=== PATIENT | female | born 1985 | race Caucasian/White ===

== ENCOUNTER 2023-02-10 15:04 | Outpatient (REF) | payer MEDICAID, SELFPAY ==
[2023-02-10 15:59] LABS: MANUAL DIFF FLAG NO
[2023-02-10 16:10] LABS: Basophils Percent Auto 0.2 % (0-2); Eosinophils Absolute Auto 0.1 X10*3/uL (0.0-0.4); Eosinophils Percent Auto 0.8 % (0-4); Hemoglobin 13.8 g/dl (12.0-16.0); Imm Gran Abs Auto 0.02 X10*3/uL (0.00-0.03); Imm Gran Pct Auto 0.2 % (0.0-0.4); Lymphocytes Absolute Auto 2.9 X10*3/uL (1.2-4.9); Lymphocytes Percent Auto 33.2 % (20-40); Mean Corpuscular HGB Conc 32.9 g/dl (31.0-35.0); Mean Corpuscular Hemoglobin 27.8 pg (27.0-33.0); Mean Corpuscular Volume 84.7 fL (80.0-98.0); Mean Platelet Volume 11.1 fL (9.4-12.3); Monocytes Absolute Auto 0.5 X10*3/uL (0.1-1.2); Monocytes Percent Auto 5.3 % (2-11); Neutrophils Absolute Auto 5.3 x10*3/uL (2.0-8.3); Neutrophils Percent Auto 60.3 % (45-73); Platelet Count 251 X10*3/uL (160-400); Red Blood Count 4.96 X10*6/uL (4.20-5.50); Red Cell Distribution Width 12.8 % (11.0-16.0); White Blood Count 8.8 X10*3/uL (4.8-10.8)
[2023-02-10 16:20] LABS: Estimated Average Glucose 100 mg/dL; Hemoglobin A1c % 5.1 % (<6.0)
[2023-02-10 16:43] LABS: Alanine Aminotransferase 26 U/L (0-31); Albumin Level 4.1 g/dL (3.5-5.0); Alkaline Phosphatase 90 U/L (39-117); Anion Gap 14 (12-20); Aspartate Amino Transferase 23 U/L (5-31); Bilirubin Total 1.8 mg/dL (0.0-1.0); Blood Urea Nitrogen 12 mg/dL (9-16); Calcium 9.3 mg/dL (8.4-10.2); Carbon Dioxide 22 mmol/L (22-29); Chloride 105 mmol/L (96-108); Estimated Glomerular Filt Rate > 60; Glucose Random 76 mg/dL (60-115); Potassium 3.7 mmol/L (3.3-5.1); Sodium 137 mmol/L (135-145); Total Protein 7.5 g/dL (6.5-8.0)
[2023-02-10 16:52] LABS: TSH reflex Free T4 1.51 uIU/mL (0.32-4.0)
[2023-02-10 17:15] LABS: HCG Quantitative 25532 mIU/mL
[2023-02-10 18:09] LABS: Appearance Urine Turbid; Color Urine Yellow; Glucose Urine UA Negative (Negative); Leukocyte Esterase Urine Small (1+) (Negative); Nitrite Urine Negative (Negative); PH 5.5 (5.0-9.0); Specific Gravity - Urine 1.025 (1.005-1.025); UMIC TRIGGER UACC YES; Urine Blood Negative (Negative); Urine Ketones Trace mg/dL (Negative); Urine Protein Negative (Neg-Trace)
[2023-02-10 18:12] LABS: Bacteria Urine 2+ (None Seen); Hyaline Casts Urine 0-2 /LPF (0-2); UACC Culture Trigger YES; WBC Urine 21-50 /HPF (0-5)
[2023-02-11 15:34] LABS: BV Int Neg Control Negative (Negative); BV Int Pos Control Positive (Positive)
== END 2023-02-10 15:05 | disposition home or self-care (01) ==
LOC: HO.HHCL 15:04
PROVIDERS: Visit Provider Student in an Organized Health Care Education/Training Program
DX: Z34.91 Encounter for supervision of normal pregnancy, unspecified, first trimester (principal); Z3A.11 11 weeks gestation of pregnancy
CPT/HCPCS: 36415; 80053; 81001; 83036; 84443; 84702; 85025; 87086; 87088; 87186; 87480; 87510; 87660

== ENCOUNTER 2023-10-30 15:05 | Outpatient (REF) | payer MEDICAID, SELFPAY ==
[2023-10-30 16:10] LABS: MANUAL DIFF FLAG NO
[2023-10-30 16:18] LABS: Basophils Percent Auto 0.5 % (0-2); Eosinophils Absolute Auto 0.1 X10*3/uL (0.0-0.4); Eosinophils Percent Auto 1.4 % (0-4); Hemoglobin 12.6 g/dl (12.0-16.0); Imm Gran Abs Auto 0.02 X10*3/uL (0.00-0.03); Imm Gran Pct Auto 0.3 % (0.0-0.4); Lymphocytes Absolute Auto 2.4 X10*3/uL (1.2-4.9); Lymphocytes Percent Auto 40.2 % (20-40); Mean Corpuscular HGB Conc 32.3 g/dl (31.0-35.0); Mean Corpuscular Hemoglobin 27.4 pg (27.0-33.0); Mean Corpuscular Volume 84.8 fL (80.0-98.0); Mean Platelet Volume 11.7 fL (9.4-12.3); Monocytes Absolute Auto 0.2 X10*3/uL (0.1-1.2); Monocytes Percent Auto 3.9 % (2-11); Neutrophils Absolute Auto 3.2 x10*3/uL (2.0-8.3); Neutrophils Percent Auto 53.7 % (45-73); Platelet Count 308 X10*3/uL (160-400); Red Cell Distribution Width 12.9 % (11.0-16.0); White Blood Count 5.9 X10*3/uL (4.8-10.8)
[2023-10-30 16:43] LABS: Alanine Aminotransferase 43 U/L (0-31); Albumin Level 4.2 g/dL (3.5-5.0); Alkaline Phosphatase 149 U/L (39-117); Anion Gap 11 (12-20); Aspartate Amino Transferase 36 U/L (5-31); Bilirubin Total 0.9 mg/dL (0.0-1.0); Blood Urea Nitrogen 20 mg/dL (9-16); Calcium 9.2 mg/dL (8.4-10.2); Carbon Dioxide 25 mmol/L (22-29); Chloride 108 mmol/L (96-108); Estimated Glomerular Filt Rate > 60; Glucose Random 96 mg/dL (60-115); Iron 52 mcg/dL (30-160); Percent Iron Saturation 12 % (15-50); Potassium 4.2 mmol/L (3.3-5.1); Sodium 140 mmol/L (135-145); Total Iron Binding Capacity 421 mcg/dL (228-428); Total Protein 7.6 g/dL (6.5-8.0); Unsaturated Iron Binding 369 ug/dL
[2023-10-30 17:02] LABS: TSH reflex Free T4 0.61 uIU/mL (0.32-4.0); Vitamin D 25-OH Total 19.9 ng/mL (>30)
[2023-10-31 07:44] LABS: HIV AB/AG Nonreactive (Nonreactive); HIV Num 1 0.05 S/CO (0.00-0.99)
== END 2023-10-30 15:06 | disposition home or self-care (01) ==
LOC: HO.HHCL 15:05
PROVIDERS: Visit Provider Internal Medicine
DX: Z00.00 Encounter for general adult medical examination without abnormal findings (principal); R53.83 Other fatigue
CPT/HCPCS: 36415; 80053; 82306; 83540; 84443; 85025; 87389

== ENCOUNTER 2023-11-28 | Outpatient (REF) | payer MEDICAID, SELFPAY ==
--- NOTE | ~2023-11-28 | XR_ITS ---
EXAMINATION: XR WRIST, LEFT CLINICAL INFORMATION: Left wrist pain COMPARISON: None available. TECHNIQUE: PA, lateral, and oblique views of the left wrist. FINDINGS: No fracture, dislocation or destructive process. No joint effusion. XR/XR wrist LT min 3V IMPRESSION: Unremarkable study.
== END 2023-11-28 00:01 | disposition home or self-care (01) ==
LOC: HO.XRAY
PROVIDERS: PCP Internal Medicine; Visit Provider Nurse Practitioner Family
DX: M25.532 Pain in left wrist (principal)
CPT/HCPCS: 73110

== ENCOUNTER 2024-05-17 10:29 | Outpatient (REF) | payer MEDICAID, SELFPAY ==
[2024-05-17 11:54] LABS: Alanine Aminotransferase 16 U/L (0-31); Albumin Level 3.7 g/dL (3.5-5.0); Alkaline Phosphatase 83 U/L (39-117); Aspartate Amino Transferase 22 U/L (5-31); Bilirubin Direct 0.3 mg/dL (0.0-0.5); Bilirubin Total 0.9 mg/dL (0.0-1.0); Cholesterol 146 mg/dL (<200); HDL Cholesterol 53 mg/dL (>40); LDL Cholesterol Calculated 70 mg/dL (<100); Total Protein 7.1 g/dL (6.5-8.0); Triglycerides 118 mg/dL (<150)
== END 2024-05-17 10:30 | disposition home or self-care (01) ==
LOC: HO.HHCL 10:29
PROVIDERS: Visit Provider Internal Medicine
DX: R79.89 Other specified abnormal findings of blood chemistry (principal)
CPT/HCPCS: 36415; 80061; 80076

== ENCOUNTER 2024-07-01 09:48 | Outpatient (REF) | payer MEDICAID, SELFPAY ==
--- OUTSIDE RECORDS SUMMARY | 2024-07-01 10:59 | XMS_ITS | Encounter Summary ---
Author Organization [facility] Address [address] [place] [address] Care Team Providers Care Race Board Attendant Name Role Phone Lilliana Olivo MD Primary Care Provide r Encounter Details Date Type Department Care Team (Latest Contact Info) Description 01/06/2022 Abstract [facility] CONVERSIONS Dental, Provider, DDS Social History Tobacco Use Types Packs/Day Years Used Date Smoking Tobacco: Never Assessed Comments Unknown Sex and Gender Information Value Date Recorded Sex Assigned at Female 02/28/2022 10:26 AM EDT Legal Sex Female 10:26 AM EDT Gender Identity Female 02/28/2022 10:26 AM EDT Sexual Orientation Straight 02/28/2022 10 :26 AM EDT documented as of this encounter Plan of Treatment Upcoming Encounters Date Type Department Care Team (Late st Contact Info) Description 07/09/2024 1:30 PM EDT Office Visit [facility] ADULT DENTAL [address] [place] [address] Fletcher Rob DDS [address] [place] [address] 11/15/2024 3:00 PM EDT Office Visit [facility] ADULT D[facility]AL [address] [place] [address] [place] Huertaaris [address] [place] [address] documented as of this encounter Visit Diagnoses Not on filedocumented in this encounter Care Teams Race Board Attendant Relationship Specialty Start Date End Date Lilliana Olivo MD [address] [place] [address] PCP - General Family Medicine 06/16/20 documented as of this encounter
--- OUTSIDE RECORDS SUMMARY | 2024-07-01 10:59 | XMS_ITS | Encounter Summary ---
Author Organization [employer] Address [address] [place] [address] Care Team Providers Care Flatwork Finisher Hand Name Role Phone Lilliana Olivo MD Primary Care Provide r Reason for Visit * Reason Comments Diarrhea Headache Encounter Details Date Type Department Care Team ([facility] st Contact Info) Description 07/01/2024 9:20 AM EST Office Visit [facility] [place] [address] [place] [address] Generalized abdominal pain (Primary Dx); Bad headache Social History Tobacco Use Types Packs/Day Years Used Date Smoking Tobacco: Never Passive Smoke Exposure: Never Smokeless Tobacco: Never Alcohol Use Standard Drinks/Week Comments Never 0 (1 standard drink = 0.6 oz pur e alcohol) Depression Answer Date Recorded Patient Health Questionnaire-9 Score 0 05/17/2024 Patient Health Questionnaire-9 Score 0 05/17/2024 Last PHQ-9: Questionnaire Data Not on file 0 05/17/2024 Housing Stability Answer Date Recorded What is your housing situation today? I have alberto connell 02/13/[address] you li ve. Do you have problems with any of the following? None of the above 02/13/2023 Food Insecurity Answer Date Recorded Within the past 12 months, y ou worried that your food would run out before you got money to buy more: Never True 02/13/2023 Within the past 12 months,th e food you bought just didn't last and you didn't have enough money to get more: Never True Transportation Answer Date Recorded In the past 12 months, has l ack of transportation kept you from medical appts, meetings, work or from getting things needed for daily living? No 11/14/2023 Utilities Answer Date Recorded In the past 12 months, has t he electric, gas, oil or water [facility] threatened to shut off services in your home? No 06/22/2023 Depression Answer Date Recorded Patient Health Questionnaire-2 Score 0 05/17/2024 Internet Access Answer Date Recorded Internet Access Q1 Yes 01/01/2024 Internet Access Q2 Not on file 01/01/2024 Comments No Sex and Gender Information Value Date Recorded Sex Assigned at Female 02/28/2022 10:26 AM EDT Legal Sex Female 10:26 AM EDT Gender Identity Female 02/28/2022 10:26 AM EDT Sexual Orientation Straight 02/28/2022 10 :26 AM EDT documented as of this encounter Last Filed Vital Signs Vital Sign Reading Time Taken Comments Blood Pressure 130/78 07/01/2024 9:24 AM EST Pulse 70 07/01/2024 9:24 AM EST Temperature 36.8 ??C (98.2 ??F) 07/01/2024 9:24 AM ES T Respiratory Rate 16 07/01/2024 9:24 AM EST Oxygen Saturation 99% 07/01/2024 9:24 AM EST Inhaled Oxygen Concentration - - Weight 64.9 kg (143 lb) 07/01/2024 9:24 AM EST Height - - Body Mass Index 27.02 05/17/2024 10:07 AM EST documented in this encounter Miscellaneous Notes * Assessment & Plan Note - Veronique Gorman MD - 07/01/2024 9:47 AM EST Associated Problem(s): Generalized abdominal pain Patient looking well today, except with mild oral dehydration and she has been afebrile for 24 hours. I think her symptoms are mostly related to viral gastroenteritis but given significant abdominal examination, I will order labs and follow-up by nurse team tomorrow. Advised regarding aggressive hydration with p.o. fluids i.e. water, Gatorade, Pedialyte, chicken broth, herbal teas etc. She can advance to BRAT diet tomorrow if she does not have diarrhea. Advised to go immediately to ED if she develops fever or chills again, worsening abdominal pain, orsevere vomiting. Will follow-up tomorrow for health status check. She is to be out of work for 2 days. documented in this encounter Plan of Treatment Upcoming Encounters Date Type Department Care Team (Late st Contact Info) Description 07/09/2024 1:30 PM EDT Office Visit [facility] [address] [place], [place] [phone] Fletcher Rob DDS [address] [place], [place] [phone] 11/15/2024 3:00 PM EDT Office Visit [facility] [address] [place], [place] [phone] Joana Huerta [address] [place], [place] [phone] Scheduled Orders Name Type Priority Associated Diagnoses Orde r Schedule CBC auto differential Lab Routine Generalized abdominal pain Expected: 07/01/2024 (Approximate), Expires: 07/01/2025 Sed Rate by Modified [facility] Routine Generalized abdominal pain Expected: 07/01/2024 (Approximate), Expires: 07/01/2025 C-reactive Protein Lab Routine Generalized abdominal pain Expected: 07/01/2024 (Approximate), Expires: 07/01/2025 documented as of this encounter Procedures Procedure Name Priority Date/Time Associated Diagnosis Comments POCT INFLUENZA B (ID NOW RAPID MOLECULAR) Routine 07/01/2024 9:37 AM EST Bad headache POCT INFLUENZA A (ID NOW RAPID MOLECULAR) Routine 07/01/2024 9:37 AM EST Bad headache POCT RAPID COVID ANTIGEN Routine 07/01/2024 9:26 AM EST Bad headache documented in this encounter Results * Influenza B (ID NOW Rapid Molecular) (07/01/2024 9:37 AM EST) Influenza B Negative Negative, Indeterminate [facility] Swab 07/01/2024 9:37 AM EST us Veronique Gorman MD POINT OF CARE TEST ENTER /EDIT ORDERABLES Final Result [facility] [address] [place] [address] [phone] * Influenza A (ID NOW Rapid Molecular) (07/01/2024 9:37 AM EST) Influenza A Negative Negative, Indeterminate [facility] Swab 07/01/2024 9:37 AM EST Veronique Gorman MD POINT OF CARE TEST ENTER /EDIT ORDERABLES Final Result Performing Organization Address [facility] Co de Phone Number [facility] [address] [place] [address] [phone] * POCT Rapid COVID Ag (07/01/2024 9:26 AM EST) Rapid COVID Ag Negative Swab 07/01/2024 9:26 AM EST Veronique Gorman MD POINT OF CARE TEST ENTER /EDIT ORDERABLES Final Result documented in this encounter Visit Diagnoses Diagnosis Generalized abdominal pain- Primary Abdominal pain, generalized Bad headache Headache documented in this encounter Additional Health Concerns Assessment Noted Time PHQ-9 Depression Total Score: 0 05/17/19 25 10:08 AM EST documented as of this encounter Care Teams Flatwork Finisher Hand Relationship Specialty Start Date End Date Lilliana Olivo MD [address] [place] [phone] PCP - General Family Medicine 06/16/20 documented as of this encounter
--- OUTSIDE RECORDS SUMMARY | 2024-07-01 10:59 | XMS_ITS | Encounter Summary ---
Author Organization [employer] [facility] Address [address] [place] [address] Care Team Providers Care Stock Replenisher Name Role Phone Lilliana Olivo MD Primary Care Provide r Encounter Details Date Type Department Care Team (Latest Contact Info) Description 07/06/2018 Abstract [facility] CONVERSIONS Dental, Provider, DDS Social History [...] Description 07/09/2024 1:30 PM EDT Office Visit [facility] ADULT DENTAL [address] [place] [address] Fletcher Rob DDS [address] [place] [address] 11/15/2024 3:00 PM EDT Office Visit [facility] ADULT DENTAL [address] [place] [address] [place] Huertaaris [address] [place] [address] documented as of this encounter Visit Diagnoses Not on filedocumented in this encounter Care Teams Stock Replenisher Relationship Specialty Start Date End Date Lilliana Olivo MD [address] [place] [address] PCP - General Family Medicine 06/16/20 documented as of this encounter
--- OUTSIDE RECORDS SUMMARY | 2024-07-01 10:59 | XMS_ITS | Encounter Summary ---
Author Organization [employer] Address [address] [place] [address] Care Team Providers Care Library Services Assistant Name Role Phone Lilliana Olivo MD Primary Care Provide r Reason for Visit * Reason Onset Date Comments Lab Results 06/18/2024 Encounter Details Date Type Department Care Team ([facility] st Contact Info) Description 06/18/2024 Telephone [facility] [address] [place], [place] [phone] Juhi Haq [place] Lab Results Social History Tobacco Use Types Packs/Day Years [...] t he electric, gas, oil or water company threatened to shut off services in your [...] AM EDT documented as of this encounter Miscellaneous Notes * Telephone Encounter - Juhi Haq MA - 06/18/2024 10:06 AM EST TC- Patient in regards of message below .Unable to reach LVM . Please let patient know her LFTS and cholesterol panel is now normal documented in this encounter Plan of Treatment Upcoming Encounters Date Type Department Care Team (Late st Contact Info) Description 07/09/2024 1:30 PM EDT Office Visit [facility] ADULT DENTAL [address] [place] [address] Fletcher Rob DDS [address] [place] [address] 11/15/2024 3:00 PM EDT Office Visit [facility] ADULT DENTAL [address] [place] [address] Joana Huerta [address] [place] [address] documented as of this encounter Visit Diagnoses Not on filedocumented in this encounter Additional Health Concerns Assessment Noted Time PHQ-9 Depression Total Score: 0 05/17/19 25 10:08 AM EST documented as of this encounter Care Teams Library Services Assistant Relationship Specialty Start Date End Date Lilliana Olivo MD [address] [place] [address] PCP - General Family Medicine 06/16/20 documented as of this encounter
--- OUTSIDE RECORDS SUMMARY | 2024-07-01 10:59 | XMS_ITS | Encounter Summary ---
Author Organization [facility] Address [address] [place] [address] Care Team Providers Care Proof Tester Name Role Phone Lilliana Olivo MD Primary Care Provide r Encounter Details Date Type Department Care Team (Latest Contact Info) Description 07/29/2020 Abstract [facility] CONVERSIONS Dental, Provider, DDS Social History [...] Description 07/09/2024 1:30 PM EDT Office Visit [facility] ADULT DENT[facility] [address] [place] [address] Fletcher Rob DDS [address] [place] [address] 11/15/2024 3:00 PM EDT Office Visit [facility] ADULT [facility] [address] [place] [address] [place] Huertaaris [address] [place] [address] documented as of this encounter Visit Diagnoses Not on filedocumented in this encounter Care Teams Proof Tester Relationship Specialty Start Date End Date Lilliana Olivo MD [address] [place] [address] PCP - General Family Medicine 06/16/20 documented as of this encounter
--- OUTSIDE RECORDS SUMMARY | 2024-07-01 10:59 | XMS_ITS | Clinical Summary ---
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 Vit-Fe Fumarate-FA ( Vitamins) 28-0.8 MG tabletIndications :Family Planning Take 1 tablet by mouth Once per day. 90 tablet 3 10/30/19 24 025 Active cholecalciferol (Vitamin D-3) 25 MCG (1000 UT) tabletIndications :Vitamin D deficiency Take 1 tablet (25 mcg) by mouth Once per day. 60 tablet 1 11/29/19 24 Active bismuth subsalicylate (Pepto Bismol) 262 MG/15ML suspension Take 15 mL by mouth if needed in the morning, at noon, and at bedtime for indigestion, diarrhea or heartburn for up to 10 days. 360 mL 07/02/19 25 025 Active acetaminophen (Tylenol Extra Strength) 500 MG tablet Take 1 tablet (500 mg) by mouth every 6 (six) hours if needed for mild pain. 120 tablet 07/02/19 25 025 Active metroNIDAZOLE (Metrogel) 0.75 % vaginal gelIndications:Ba cterial Vaginosis Insert one applicator into vagina at bedtime for 7 nights 45 g 02/11/20 23 025 Discontin ued(Thera py completed ) Active Problems Problem Noted Date Diagnosed Date Generalized abdominal pain 07/01/2024 Assessment & Plan (07/01/2024 9:47 AM EST): Patient looking well today, except with mild [...] fever or chills again, worsening abdominal pain, or severe vomiting. Will follow-up tomorrow for health status check. She is to be out of work for 2 days. Screening mammogram, encounter for 05/17/2024 Vitamin D deficiency 11/29/2023 Dental calculus 11/07/2023 Missing teeth, acquired 11/07/2023 Gingival bleeding 11/07/2023 Dental caries 11/07/2023 Grief 10/31/2023 Assessment & Plan (10/31/2023 1:39 PM EDT): Counseling done I will f/u closely No medications for now Other fatigue 10/30/2023 Assessment & Plan (11/29/2023 10:09 AM EDT): Resolved She is on vitamins I will hold iron supplement prescription for now Assessment & Plan (10/31/2023 1:38 PM EDT): Labs ordered last hgb 8.1 likley post I will repeat her blood work Left wrist pain 10/30/2023 11 weeks gestation of 02/11/2023 Assessment & Plan (02/11/2023 9:05 AM EDT): -LMP: 11/29/2022 ----calculated 11 weeks of -Pt is not sure if would like to continue w and would like to discuss w partner. -I made referral to OBGYN in case she decides to go through w and gave prenatals to start, in case she decides to continue. -I also gave number of [facility] in [place] in case she decides not to continue w . -Will do labs today. -Discussed importance of avoiding alcohol and certain meds if she decides to continue w . Pt is a non-smoker and does not use drugs. Headache 02/11/2023 Assessment & Plan (02/11/2023 9:07 AM EDT): BOLDEN appears to be possibly tensional w no alarming features and normal neurologic exam. -Advise hydration. -Tylenol PRN and told to avoid other meds due to . -Alarm S/Sx discussed. Dysuria 02/11/2023 Assessment & Plan (02/11/2023 9:10 AM EDT): Pt reports urinary and vaginal Sx. Urine dipstick - ketones + , nit neg LE trace. -Pt is currently . Will treat empirically for possible UTI and vaginosis w Keflex QID and Metronidazole gel. -I collected today a sample for vaginal swab for vaginal BV -UA w reflex cx Encounter for preventative adult health care exa mination 09/08/2022 Assessment & Plan (10/31/2023 1:37 PM EDT): See HPI Assessment & Plan (09/08/2022 1:57 PM EDT): Please refer to HPI Slow transit constipation 09/08/2022 Assessment & Plan (09/08/2022 1:58 PM EDT): It was advise to drink more water and increase fiber on her diet Elevated LFTs 07/14/2022 Assessment & Plan (05/17/2024 10:43 AM EST): Today extensive discussion was done about life style modifications I advise healthy diet (low calorie) and cardiovascular exercise Labs will be recheck Steatosis of liver 07/14/2022 Encounters Date Type Department Care Team Description 07/01/2024 9:20 AM EST Office Visit [facility] WALK-IN [address] [id number] Generalized abdominal pain (Primary Dx); Bad headache 06/18/[address] [phone] Juhi Haq [place] Lab Results 05/17/2024 2:00 PM EST Office Visit [facility] ADULT DENTAL [address] [place] [phone] Joana Huerta Dental calculus (Primary Dx); Missing teeth, acquired 05/17/2024 9:45 AM EST Office Visit [address] [address] Lilliana Olivo MD Elevated LFTs (Primary Dx); Screening mammogram, encounter for; Dietary counseling; Exercise counseling; Overweight 05/17/2024 Travel 05/16/[address] [address] Juhi Haq [place] Chart Prep 05/08/2024 Patient Outreach [address] [address] Lilliana Olivo MD Pre-visit Planning (SDOH screening completed on 11/14/2023) 04/10/[address] [address] Karolyn Tierney, TARAH Care Management ([facility] Graduation ) from Last 3 Months Immunizations Name Administration Dates Next Due Hep B, adult 08/09/2016,01/11/2016,06/12/2014 Influenza injectable quadriv alent IIV4 with preservative 03/14/2017,02/16/2015 Influenza injectable quadriv alent preservative free 02/04/2021,01/24/2019 Influenza, IIV3, injectable 03/11/2014 Tdap 02/04/2021, 9,09/28/2018,2013 Social History Tobacco Use Types Packs/Day Years Used Date Smoking Tobacco: Never Passive Smoke Exposure: Never Smokeless Tobacco: Never Tobacco Cessation:Counseling Given: Not Answered Alcohol Use Standard Drinks/Week Comments Never 0 [...] Orientation Straight 02/28/2022 10 :26 AM EDT Last Filed Vital Signs Vital Sign Reading Time Taken Comments Blood Pressure 130/78 07/01/2024 9:24 AM EST Pulse 70 07/01/2024 9:24 AM EST Temperature 36.8 ??C (98.2 ??F) 07/01/2024 9:24 AM ES T Respiratory Rate 16 07/01/2024 9:24 AM EST Oxygen Saturation 99% 07/01/2024 9:24 AM EST Inhaled Oxygen Concentration - - Weight 64.9 kg (143 lb) 07/01/2024 9:24 AM EST Height 154.9 cm (5' 1 ) 05/17/2024 10:07 AM EST Body Mass Index 27.02 05/17/2024 10:07 AM EST Plan of Treatment Upcoming Encounters Date Type Department Care Team (Late st Contact Info) Description 07/09/2024 1:30 PM EDT Office Visit [facility] ADULT DENTAL [address] [place] [phone] Fletcher Rob DDS [address] [place] [address] 11/15/2024 3:00 PM EDT Office Visit [facility] ADULT DENTAL [address] [place] [address] Joana Huerta [address] [place] [address] Health Maintenance Due Date Last Done Comments Alcohol/Substance Use Screening 1996 Family Planning (PISQ) 1999 Hepatitis A Vaccines (1 of 2 - Risk 2-dose series) 2003 COVID-19 Vaccine ( season) 2023 03/31/2021 Influenza Vaccine (#1) 2023 , 01/24/2019, 03/14/2017, Additional history exists Mammogram 2024 Dental Oral Exam 05/10/2024 11/07/2023, 11/2021, 03/04/2021, Additional history exists Dental X-Ray: Bitewings 11/07/2024 11/07/19 24, 02/28/2022, 01/06/2022, Additional history exists SDOH Screening 11/13/2024 11/14/2023 Dental Prophylaxis 11/15/2024 05/17/2024, 0 11/07/2023, 01/06/2022, Additional history exists Dental X-Ray: Full Mouth 01/07/2025 022, 03/16/2018, 08/25/2014 Depression Screening 05/17/2025 05/17/2024, 11/14/19 24 Tobacco Screening 05/17/2025 05/17/2024 Cervical Cancer Screening 09/30/2025 HPV/Cotest 09/30/2025 09/30/2020, 03/14/2017 Pap Smear 09/30/2025 09/30/2020 DTaP/Tdap/Td Vaccines (5 - Td or Tdap) 02/04/2031 02/04/2021, 01/24/2019, 09/28/2018, Additional history exists Zoster Vaccines (1 of 2) 2034 RSV Patients and Patients Aged 60 years or older (1 - 1-dose 75+ series) 2059 Hepatitis B Vaccines Completed 08/09/2016, 01/11/2016, 06/12/2014 Hepatitis C Screening Completed 02/28/2022 HIV Screening Completed 10/30/2023 HIB Vaccines Aged Out No longer eligi ble based on patient's age to complete this topic HPV Vaccines Aged Out No longer eligi ble based on patient's age to complete this topic IPV Vaccines Aged Out No longer eligi ble based on patient's age to complete this topic Meningococcal Vaccine Aged Out No tima walt eligible based on patient's age to complete this topic Pneumococcal Vaccine: Pediatrics (0 to 5 Years) and At-Risk Patients (6 to 49) Years) Aged Out No longer eligible based on patient's age to complete this topic RSV under 20 months Aged Out No longe r eligible based on patient's age to complete this topic Rotavirus Vaccines Aged Out No longer eligible based on patient's age to complete this topic Procedures Procedure Name Priority Date/Time Associated Diagnosis Comments POCT INFLUENZA B (ID NOW RAPID MOLECULAR) Routine 07/01/2024 9:37 AM EST Bad headache POCT INFLUENZA A (ID NOW RAPID MOLECULAR) Routine 07/01/2024 9:37 AM EST Bad headache POCT RAPID COVID ANTIGEN Routine 07/01/2024 9:26 AM EST Bad headache CASE PRESENTATION, DETAILED AND EXTENSIVE TREATMENT PLANNING Routine 05/17/2024 2:00 PM EST ORAL HYGIENE INSTRUCTIONS Routine 05/17/2024 2:00 PM EST Dental calculus Missing teeth, acquired Full PROPHYLAXIS - ADULT Routine 05/17/2024 2:00 PM EST Dental calculus LIPID PANEL, STANDARD Routine 05/17/2024 10:31 AM EST Elevated LFTs HEPATIC FUNCTION PANEL Routine 05/17/2024 10:31 AM EST Elevated LFTs BITEWINGS - 4 RADIOGRAPHIC IMAGES Routine 11/07/2023 10:00 AM EDT Dental calculus Missing teeth, acquired Dental caries Gingival bleeding PERIODIC ORAL EVALUATION - ESTABLISHED PATIENT Routine 11/07/2023 10:00 AM EDT HIV 1/2 ANTIGEN/ANTIBODY, FOURTH GENERATION W/RFL Routine 10/30/2023 3:06 PM EDT Encounter for preventative adult health care examination [facility] HISTORICAL HEPATITIS C AB W/REFL TO HCV RNA, QN, PCR Routine 02/28/2022 10:46 AM EDT INTRAORAL - COMPLETE SERIES OF RADIOGRAPHIC IMAGES Routine 01/06/2022 12:00 AM EDT HM PAP/HPV Routine 09/30/2020 from Last 3 Months or Most Recently Relevant to Health Maintenance Results * Influenza B (ID NOW Rapid Molecular) (07/01/2024 9:37 AM EST) Influenza B Negative Negative, Indeterminate [facility] Swab 07/01/2024 9:37 AM EST us Veronique Gorman MD POINT OF CARE TEST ENTER /EDIT ORDERABLES Final Result Performing Organization Address [facility] Co de Phone Number [facility] [address] [place] [phone] * Influenza A (ID NOW Rapid Molecular) (07/01/2024 9:37 AM EST) Influenza A Negative Negative, Indeterminate [facility] Swab 07/01/2024 9:37 AM EST Veronique Gorman MD POINT OF CARE TEST ENTER /EDIT ORDERABLES Final Result Performing Organization Address [facility] Co de Phone Number [facility] [address] [place] [phone] * POCT Rapid COVID Ag (07/01/2024 9:26 AM EST) Rapid COVID Ag Negative Swab 07/01/2024 9:26 AM EST Veronique Gorman MD POINT OF CARE TEST ENTER /EDIT ORDERABLES Final Result * Hepatic Function Panel (05/17/2024 10:31 AM EST) Pathologist [facility] Bilirubin, Total 0.9 0.0 - 1.0 mg/dL [facility] Bilirubin, Direct 0.3 0.0 - 0.5 mg/dL [facility] Aspartate Amino Transferase 22 5 - 31 U/L [facility] Alanine Aminotransferase 16 0 - 31 U/L [facility] Total Protein 7.1 6.5 - 8.0 g/dL [facility] Albumin Level 3.7 3.5 - 5.0 g/dL [facility] Alkaline Phosphatase 83 39 - 117 U/L [facility] Blood Venous blood specimen / Unknown 05/17/2024 10:31 AM EST 05/17/2024 11:20 AM EST us Lilliana Alcocer MD LAB BLOOD ORDERABLES Final Result [facility] [address] [place] [phone] * Lipid Panel, Standard (05/17/2024 10:31 AM EST) Triglycerides 118 <150 mg/dL [facility] Comment:Desirable Triglyceri de: less than 150 mg/dLBorderline High Triglyceride 150-199 mg/dLHigh Triglyceride: 200-499 mg/dLVery High Triglyceride: greater than or equal to 5OO mg/dL Cholesterol 146 <200 mg/dL [facility] Comment:Desirable Cholestero l: less than 200 mg/dLBorderline High Cholesterol: 200-239 mg/dLHigh Cholesterol: greater than 239 mg/dL LDL Cholesterol Calculated 70 <100 mg/dL [facility] Comment:Desirable LDL: less than 100 mg/dLNear Optimal/Above Optimal LDL: 110- 129 mg/dLBorderline High LDL: 130-159 mg/dLHigh LDL: 160-189 mg/dLVery High LDL: greater than or equal to 190 mg/dL HDL Cholesterol 53 >40 mg/dL [facility] Comment:Desirable HDL: grea ter than 40 mg/dL Note: This HDL assay may give artificially low results in patients with liver disease. Blood Venous blood specimen / Unknown 05/17/2024 10:31 AM EST 05/17/2024 11:20 AM EST us Lilliaan Alcocer MD LAB BLOOD ORDERABLES Final Result Performing Organization Address [facility] Co de Phone Number [facility] [address] [place] [phone] * HIV-1/2 Antigen and Antibodies, Fourth Generation, with Reflexes (10/30/2023 3:06 PM EDT) HIV AB/AG Nonreactive Nonreactive [facility] Comment:HIV-1 p24 Ag and/or HIV-1/HIV-2 Ab not detected.A test result that is nonreactive does not exclude thepossibility of exposure to or infection with HIV-1 and/orHIV-2. Nonreactive results in this assay for individualswith prior exposure to HIV-1 and/or HIV-2 may be due toantigen and antibody levels that are below the limit ofdetection of this assay.The Footnote HIV Ag/Ab Combo assay result andsupplemental assay results should be interpreted inconjunction with the patient's clinical presentation,history and other laboratory results. If the results areinconsistent with clinical evidence, additional testing issuggested to confirm the result. Blood Venous blood specimen / Unknown 10/30/2023 3:06 PM EDT 10/30/2023 4:03 PM EDT us Lilliana Alcocer MD LAB BLOOD ORDERABLES Final Result Performing Organization Address City/[facility] Co de Phone Number [facility] [address] [place] [phone] [phone] * HEPATITIS C AB W/REFL TO HCV RNA, QN, PCR (02/28/2022 10:46 AM EDT) HEPATITIS C ANTIBODY NON-REACTI VE NON-REACT TRESSA [facility] INDEX 0.10 <1.00 [facility] Comment: ?? HCV antibody was non-reactive. There is no laboratory ?? evidence of HCV infection. ?? In most cases, no further action is required. However, if recent HCV exposure is suspected, a test for HCV RNA (test code 77454) is suggested. ?? For additional information please refer to http://education.SciAps/faq/MXR80c3 (This link is being provided for informational/ educational purposes only.) ?? 02/28/2022 10:4 6 AM EDT Lilliana Alcocer MD HISTORICAL/NON ORDERA BLE LABS Final Result [facility] * Hm Pap Smear (09/30/2020) Pap Negative for intraephithelial lesion or malignancy Negative for intraephithelial lesion or malignancy, Other HPV Undetected Undetected, Indeterminate, Quantitative, Not Detected Historical Provider HEALTH MAINTENANCE Final Result from Last 3 Months or Most Recently Relevant to Health Maintenance Insurance [employer]SN [employer] [facility] C3 DENTAL-[facility] MEDICAID STAND ADULT Care Teams Vineyard Tender Relationship Specialty Start Date End Date Lilliana Olivo MD [address] [place] [phone] PCP - General Family Medicine 06/16/20
[2024-07-01 11:40] LABS: MANUAL DIFF FLAG NO
[2024-07-01 11:48] LABS: Basophils Percent Auto 0.2 % (0-2); Eosinophils Absolute Auto 0.1 X10*3/uL (0.0-0.4); Eosinophils Percent Auto 0.6 % (0-4); Hematocrit 40.7 % (37.0-47.0); Hemoglobin 13.4 g/dl (12.0-16.0); Imm Gran Abs Auto 0.02 X10*3/uL (0.00-0.03); Imm Gran Pct Auto 0.2 % (0.0-0.4); Lymphocytes Absolute Auto 1.8 X10*3/uL (1.2-4.9); Mean Corpuscular HGB Conc 32.9 g/dl (31.0-35.0); Mean Corpuscular Hemoglobin 28.8 pg (27.0-33.0); Mean Corpuscular Volume 87.3 fL (80.0-98.0); Mean Platelet Volume 10.6 fL (9.4-12.3); Monocytes Absolute Auto 0.5 X10*3/uL (0.1-1.2); Neutrophils Absolute Auto 5.7 x10*3/uL (2.0-8.3); Platelet Count 250 X10*3/uL (160-400); Red Blood Count 4.66 X10*6/uL (4.20-5.50); Red Cell Distribution Width 11.9 % (11.0-16.0)
[2024-07-01 12:04] LABS: C Reactive Protein 6.56 mg/dL (< or = 0.50)
[2024-07-01 12:31] LABS: Erythrocyte Sedimentation Rate 13 MM/HR (0-20)
== END 2024-07-01 09:49 | disposition home or self-care (01) ==
LOC: HO.HHCL 09:48
PROVIDERS: Visit Provider Internal Medicine
DX: R10.84 Generalized abdominal pain (principal)
CPT/HCPCS: 36415; 85025; 85652; 86140

== ENCOUNTER 2025-04-26 08:13 | Outpatient (REF) | payer MEDICAID, SELFPAY ==
--- NOTE | ~2025-04-26 | MM_ITS ---
EXAMINATION: MM SCREENING DIGITAL BREAST TOMOSYNTHESIS, BILATERAL CLINICAL INFORMATION: Screening. Asymptomatic. COMPARISON: Mammography: Comparison is made with available priors TECHNIQUE: Digital breast mammography with tomosynthesis is performed in both the craniocaudal and mediolateral oblique views along with computer-aided detection (CAD). FINDINGS: The breasts are heterogeneously dense, which may obscure small masses. There are no significant masses, abnormal calcifications, or other abnormalities. MM/MM tomosynthesis screening BI IMPRESSION: No mammographic evidence of malignancy. ASSESSMENT: BI-RADS Category 1: Negative RECOMMENDATION: Routine annual mammography screening. 1 year F/U This examination should not preclude the clinical evaluation of a suspicious palpable abnormality. This patient's information was entered into a reminder system with a target due date for their next mammogram. Electronically signed by: Trina Montoya DO 04/28/2025 09:10 AM ELYSSA
--- OUTSIDE RECORDS SUMMARY | 2025-04-26 08:16 | XMS_ITS | Clinical Summary ---
Author Organization [facility] Address [address] [place] [address] Phone Care Team Providers Care Product Merchandiser Name Role Phone Pedro Lam NP, Batsheva Primary Care Provider Lavonne martin Allergies No known active allergies Medications ibuprofen (ADVIL,MOTRIN) 600 MG tabletIndicatio ns:pain,mild pain Take 1 tablet (600 mg total) by mouth every 6 (six) hours for 1 day, THEN 1 tablet (600 mg total) every 6 (six) hours as needed. Indications: pain, mild pain. 20 tablet 4 Active oxyCODONE 5 MG immediate release tablet Take 1 tablet (5 mg total) by mouth every 4 (four) hours as needed. Partial fill ok 20 tablet 4 Active Additional Information Patient not taking.Reported on 11/22/2023 28 mg iron- 800 mcg Tab Take 1 tablet by mouth every morning. 4 Active hydrocortisone 2.5 % creamIndication s:Pruritus Apply topically 2 (two) times a day. 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 Patient met with MFM and chooses to continue and deliver with us at [facility]. Monitoring not recommended but patient is so need a plan for management. Offered induction vs expectant management. Kasi prefers expectant management at this point. Discussed possibility that labor may not start spontaneously and recommendation for IOL date if no labor. Tentative plan made for 40 weeks. Assessment & Plan (09/19/2023 3:12 PM EDT): I explained that in women where the fetus has anencephaly, it is not uncommon to go past the due date without spontaneous labor. Given her history of previous section, would recommend delivery between 39 and 40 weeks with induction. She is amenable to this. Assessment & Plan (08/15/2023 3:30 PM EDT): She notes movement. She denies any vaginal bleeding, leakage of fluid, or regular contractions. Overall, she is doing well and has no acute complaints. We briefly reviewed delivery management options today. Ideally, she will go into labor on her own as she has had 2 successful 's. But I did explain that in women with an anencephalic fetus, the rate of spontaneous labor may be less. Therefore, if she goes significantly past her due date, we may need to consider induction. However, I did explain that we would review these options at our next high risk meeting. Request for sterilization 04/04/2023 Overview (08/30/2023): Patient sure re no more pregnancies. This is 4th. Sign MH papers at 24-28 weeks. Given anencephaly, will defer sterilization until interval procedure. Kasi is still sure re no more children, but she needs to address further with . Uterine size-date discrepancy in first trimester 03/07/2023 Overview (03/07/2023): US in T1 5 weeks smaller than dates. Use US PEDRO of 10/10/2023 Supervision of high risk in third trim dayron 02/27/2023 Overview (08/30/2023): HR due to ANENCEPHALY, which she is carrying to term. screening: low risk CFFDNA Baby ASA: not indicated Rh: O pos GC/Chlam: neg/neg PAP 09/30/202022 COVID-19 vaccinated Hgb * GTT * Repeat RPR * Tdap * EPDS * PPBC * GBS * Feeding Plan * CF negative 2019 Varicella Imm Hgb electrophoresis normal. Assessment & Plan (10/05/2023 1:31 PM EDT): She is feeling movement. She denies any vaginal bleeding, LOF or regular contractions. Overall, she is doing OK. Assessment & Plan (09/19/2023 3:11 PM EDT): She notes movement. She denies any vaginal bleeding, leakage of fluid, or regular contractions. Overall, she is doing okay. History of delivery, currently 02/27/2023 Overview (02/27/2023): Date of surgery: 09/18/06 Reason for prior : intolerance Incision type: Midline vertical skin incision. Unknown uterine incision. Successful x2 Records requested/reviewed: Contraindications to TOLAC include > 2 prior births, prior uterine rupture or dehiscence, prior transfundal incision (classical, T, or J incisions; myomectomy with incision into uterine cavity or by surgeon's discretion), interpregnancy interval < 6 months Anterior placenta ? If anterior, schedule level 2 US Delivery route counseling: Preferred mode of delivery: Consent signed: If calculator score <60%, schedule MD consult at 35-37 weeks Calculator: [email or web address]--[email or web address] culat or History of 02/27/2023 Overview (02/27/2023): x2: 11/25/18, 04/07/21 Multigravida of advanced maternal age in first t rimester 02/27/2023 Overview (03/08/2023): AMA age >35 o Recommend daily baby aspirin if other risk factors are present (nulliparity, BMI >= 30, family h/o pre-eclampsia in mother or sister, previous with SGA infant, previous stillbirth, interval of >= 10 years between pregnancies, IVF ): No other risk factors present o Risks of aneuploidy discussed w patient. o Offered - Offer cell free DNA - Level 2 - Offer [facility] and amnio o Pt. Chooses Counsyl and level II Language barrier 04/12/2018 Overview (02/27/2023): Filipino speaking Requires Filipino speaking provider or interpretor Patient prefers apts in [place] with Dr. Jones Resolved Problems Problem Noted Date Diagnosed Date Resolved Date Multigravida of advanced mat ernal age in first trimester 02/27/2023 05/19/2023 Normal intrauterine , antepartum 04/07/2021 04/07/2021 care following vaginal delivery 04/07/2021 05/25/2021 Supervision of normal 09/30/2020 09/30/2020 History of delivery 09/30/2020 05/25/2021 Overview (09/30/2020): Successful TOLAC with P2. Plans TOLAC this as well. Assessment & Plan (04/07/2021 2:17 AM EST): Primary delivery 14 years ago for cord around the baby's neck Desires JOELLE Multigravida of advanced mat ernal age in third trimester 09/30/2020 05/25/2021 Overview (04/01/2021): OB-CMI score: 2 [09/30/2020] Group PN care? N Rh O POS GC/Chlam: neg/neg PAP: 09/30/2020 Tdap: given 02/04/2021 Flu: given 02/04/2021 Hgb: 11.7 GTT Normal (96) GBS neg PPBC counseled 03/29, undecided (has used Depo and Nexplanon in the past) screening: NT (1:2400); level II: Normal Assessment & Plan (03/29/2021 5:05 PM EST): GBS done today. Signs of labor/reasons to call reviewed. Discussed PPBC. First Covid vaccine schedule for Monday. Assessment & Plan (02/15/2021 12:10 PM EDT): Lab results printed for WIC form. Feeling well, +FM, no ctx/MINA/VB. No new concerns today. , delivered, current hospitalization 11/25/2018 01/04/2019 Term 11/25/2018 01/04/2019 Uses Filipino as primary spoken language 05/11/2018 05/11/2018 Encounter for supervision of normal in third trimester 04/12/2018 01/04/2019 Overview (11/14/2018): Review PEDRO change at [facility] (changed to 12/02/18 by U/S) MD: wants to see TK Childbirth Ed? Group PN care? NO Rh: POS NT Screen: low risk GC/chl neg/neg 04/12/18 Tdap done Hgb 10.6 GTT 109 GBS neg PPBC * Chart reviewed GL Assessment & Plan (11/19/2018 9:18 AM EDT): Patient presents today with her 12-year-old daughter who speaks fluent Swedish. Patient states she understands me and prefers to have her daughter interpret. Patient has no concerns. Baby is moving well. Previous delivery a ffecting 04/12/2018 01/04/2019 Overview (06/08/2018): Unsure incision type, was done in [facility] Will attempt to request records: per patient: family not able to get records as they have been destroyed due to elapsed time The patient has a vertical skin incision. Uterine incision unknown. First C/S was for breech. In this situation, TOLAC is possible. The patient was counseled regarding risk of uterine rupture (approximately 1/200) and consequences thereof. She requests TOLAC Assessment & Plan (11/19/2018 9:19 AM EDT): Patient desire for JOELLE AC reviewed with patient. Risks and benefits reviewed. Immunizations Immunization Administration Dates Next Due COVID-19 (Pre-02/20) Moderna Vaccine, mRNA, PF 03/31/2021 Hepatitis B Adult 08/09/2016,01/11/2016,06/12/19 15 INFLUENZA, SPLIT VIRUS, TRIV ALENT W/ PRESERVATIVE IM 03/11/2014 Influenza Quadrivalent Prese rvative Free IM 02/04/2021,01/24/2019 Influenza Quadrivalent w/ Preservative IM 03/14/2017,02/16/2015 Tdap 02/04/2021, 9,09/28/2018,2013 Family History Medical History Relation Comments CV disease Mother Relation Status Comments Father Alive Mother Social History Tobacco Use Types Packs/Day Years Used Date Smoking Tobacco: Never Passive Smoke Exposure: Never Smokeless Tobacco: Never Tobacco Cessation:Counseling Given: Not Answered Alcohol Use Standard Drinks/Week Comments No 0 (1 standard drink = 0.6 oz pur e alcohol) Education Answer Date Recorded Are you interested in more education? Not on leticia e 03/22/2023 Are you concerned about learning? Not on file 03/22/2023 No 03/22/2023 No 03/22/2023 Digital Access Answer Date Recorded No 03/22/2023 No 03/22/2023 Reliable internet access at home? Not on file 03/22/2023 Device with a working camera? Not on file Intimate Partner Violence Answer Date R ecorded Are you denied basic needs s uch as food, clothing, or medical care? No 10/12/2023 In the past 12 months have y ou been in a relationship with a person who hurts, threatens, or tries to control you? No 10/12/2023 Are you denied basic needs s uch as food, clothing, or medical care? No 10/12/2023 In the past 12 months have y ou been in a relationship with a person who hurts, threatens, or tries to control you? 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 Not on file Not on file Not on file Last Filed Vital Signs Vital Sign Reading Time Taken Comments Blood Pressure 110/70 11/22/2023 10:39 AM EDT Pulse 80 10/12/2023 8:37 AM EDT Temperature 36.7 C (98.1 F) 10/12/2023 8:37 AM EDT Respiratory Rate 18 10/12/2023 8:37 AM EDT Oxygen Saturation 97% 10/12/2023 8:37 AM EDT Inhaled Oxygen Concentration - - Weight 59.6 kg (131 lb 6.4 oz) 11/22/2023 10:39 AM EDT Height 152.4 cm (5') 11/22/2023 10:39 AM EDT Body Mass Index 25.66 11/22/2023 10:39 AM EDT Plan of Treatment Health Maintenance Due Date Last Done Comments DEPRESSION SCREENING 1996 PAP SMEAR 10/01/2023 09/30/2020 MAMMOGRAM 2024 INFLUENZA VACCINE (#1) 2024 , 01/24/2019, 03/14/2017, Additional history exists COVID-19 VACCINE ( - 2024- season) 2024 03/31/2021 SCREENING FOR DIABETES 02/25/2026 02/25/2023 Adult Td,Tdap Booster 02/04/2031 02/04/2021 , 01/24/2019, 09/28/2018, Additional history exists HEPATITIS C SCREENING Completed 2023 , 2023, 09/30/2020, Additional history exists HIV ONE-TIME SCREENING (18-65 YEARS) Completed 2023 SMOKING STATUS SCREENING (Once After 26 Yrs) Completed 11/22/2023 HEPATITIS A VACCINES Aged Out No long er eligible based on patient's age to complete this topic HIB VACCINES Aged Out No longer eligi ble based on patient's age to complete this topic MENINGOCOCCAL VACCINES (ACWY) Aged Out No longer eligible based on patient's age to complete this topic MENINGOCOCCAL VACCINES (B) Aged Out N o longer eligible based on patient's age to complete this topic PNEUMOCOCCAL VACCINES (0-49 years) Aged Out No longer eligible based on patient's age to complete this topic Medical Devices Not on file Procedures Procedure Name Priority Date/Time Associated Diagnosis Comments HEPATITIS C ANTIBODY, QUALITATIVE Routine 2023 2:23 PM EST Encounter for supervision of normal in first trimester PAP TEST Routine 09/30/2020 12:00 AM EDT from Last 3 Months or Most Recently Relevant to Health Maintenance Results * Hepatitis C antibody, qualitative (2023 2:23 PM EST) HCV NON-REACTIV E NON-REACTI VE [facility] Blood 2023 2:23 PM EST 2023 2:41 PM EST us Trey Jones MD LAB BLOOD BKR ORDERABLES Final R esult [address] [address] * Pap Smear (09/30/2020 12:00 AM EDT) 09/30/2020 10/01/2020 9:4 1 AM EDT Narrative SEE NARRATIVE - 10/08/2020 11:03 AM EDT [address] [address] Photographic Enlarger Operator: Kelley Conner MD [employer] Cytology Report FINAL DIAGNOSIS A. PAP SMEAR (SUREPATH) CE: SPECIMEN ADEQUACY: Satisfactory for evaluation; transformation zone present. INTERPRETATION: NEGATIVE FOR INTRAEPITHELIAL LESION OR MALIGNANCY. Electronically Signed Out By: ELIO Hamilton(ASCP) The Pap test is a screening test primarily for squamous cancers and precursors and has associated false-negative and false-positive results. New technologies such as liquid-based preparations may decrease but will not eliminate all false-negative results. Regular sampling and follow-up of unexplained clinical signs and symptoms are recommended to minimize false negative results. PROCEDURES/ADDENDA HPV Testing (Requested) Ordered Date: 10/01/2020 A. PAP SMEAR (SUREPATH) CE: Human Papilloma Virus Test Negative for high-risk human papillomavirus types 16, 18, 45 and the Other high risk probe set (Includes 31, 33, 35, 39, 51, 52, 56, 58, 59, 66, 68) by [employer] Onclarity HR-HPV analysis. Clinical correlation is advised. This HPV test was performed at [facility], [address] [place] [address]. This test has been FDA approved for SurePath cervical cytology specimens. The accuracy and precision of this test for all other specimen sources has been verified in the Cytopathology Laboratory of the [facility] and has not been cleared or approved by the U.S. Food and Drug Administration. Clinical correlation is advised. CLINICAL HISTORY Date of Last Menstrual Period: 07-12-2020 Menstrual History: Other Clinical Conditions: Screening Pap SPECIMEN SOURCE A: PAP SMEAR (SUREPATH) CE Patient Name: KASI DORSEY : 1985 (Age: 35) Sex: F Institution: [facility] Location: [facility] Date of Collection: 09/30/2020 Date of Reported: 10/08/2020 11:03 Results to: Trey Jones MD Trey Jones MD CYTOLOGY ORDERABLES Final Result SEE NARRATIVE from Last 3 Months or Most Recently Relevant to Health Maintenance [place] [address] C3 ACO [facility] C3 ACO [facility] C3 ACO Advance Directives For more information, please contact: [phone] (9AM - 5PM [facility]ie/[facility], Monday-Monday) * Full Code (Latest Code Status on File) Date Activated Date Inactivated Comments 10/09/2023 8:28 AM Question Answer Comments Code Status Confirmed With: Patient * Full Code (Presumed) Date Activated Date Inactivated Comments 11/25/2018 12:10 PM 11/27/2018 4:34 PM * Full Code (Presumed) Date Activated Date Inactivated Comments 11/25/2018 2:54 AM 11/25/2018 12:10 PM Care Teams Product Merchandiser Relationship Specialty Start Date End Date Batsheva Vasquez NP PCP - General 05/17/19 Additional Source Comments The information contained in this document represents components of the legal health record. It is not the complete legal health record.[facility]
--- OUTSIDE RECORDS SUMMARY | 2025-04-26 08:16 | XMS_ITS | Encounter Summary ---
Author Organization [facility] Address [address] [facility] [address] [place] [address] Phone Care Team Providers Care Retail Support Manager Name Role Phone Pedro Lam NP, Batsheva Primary Care Provider Lavonne martin Encounter Details Date Type Department Care Team (Latest Contact Info) Description 01/24/2024 Transcribe Orders Virtual Department [address] [place] [address] Lilliana Ch MD [address] [place] [address] Elevated LFTs (Primary Dx) Social History Tobacco Use Types Packs/Day Years Used Date Smoking Tobacco: Never Passive Smoke Exposure: Never Smokeless Tobacco: Never Alcohol Use Standard Drinks/Week Comments No 0 [...] file Not on file Not on file documented as of this encounter Plan of Treatment Not on file documented as of this encounter Results * US ABDOMEN COMPLETE (ADULT) (01/31/2024 7:42 AM EDT) Anatomical Region Laterality Modality Abdomen Ultrasound 01/31/2024 8:04 AM EDT Impressions 01/31/2024 8:09 AM EDT Unremarkable abdominal ultrasound. Narrative 01/31/2024 8:09 AM EDT US ABDOMEN COMPLETE (ADULT) Referring clinician's provided indication for this examination in Epic: Outside Radiology Order; elevated lft's TECHNIQUE: Abdominal Ultrasound Complete. COMPARISON: US ABDOMEN COMPLETE (ADULT) FINDINGS: Liver: No suspicious focal lesions. Hepatic echogenicity is within normal limits. Main portal vein: Patent portal vein with normally directed flow. Gallbladder: No gallstones or gallbladder wall thickening. Corporate Concierge reports a negative sonographic Dale sign. Biliary: No intrahepatic or extrahepatic biliary ductal dilation. The common bile duct measures 5 mm. Pancreas: Incompletely seen. Spleen: No splenomegaly. . Right Kidney: Size: 11.0 cm. No cortical thinning. No shadowing stones or hydronephrosis. Left Kidney: Size: 10.9 cm. No cortical thinning. No shadowing stones or hydronephrosis. Aorta: Normal, where visualized sonographically. Inferior vena cava: Patent intrahepatic segment. No upper abdominal free fluid. Procedure Note Kelley Ibarra MD - 01/31/2024 US ABDOMEN COMPLETE (ADULT) Referring clinician's provided indication for this examination in Epic:Outside Radiology Order; elevated lft's TECHNIQUE: Abdominal Ultrasound Complete. COMPARISON: US ABDOMEN COMPLETE (ADULT) FINDINGS: Liver: No suspicious focal lesions. Hepatic echogenicity is within normallimits. Main portal vein: Patent portal vein with normally directed flow. Gallbladder: No gallstones or gallbladder wall thickening. Corporate Concierge reports a negative sonographic Dale sign. Biliary: No intrahepatic or extrahepatic biliary ductal dilation. The common bile duct measures 5 mm. Pancreas: Incompletely seen. Spleen: No splenomegaly. . Right Kidney: Size: 11.0 cm. No cortical thinning. No shadowing stones orhydronephrosis. Left Kidney: Size: 10.9 cm. No cortical thinning. No shadowing stones orhydronephrosis. Aorta: Normal, where visualized sonographically. Inferior vena cava: Patent intrahepatic segment. No upper abdominal free fluid. IMPRESSION: Unremarkable abdominal ultrasound. us Lilliana Ch MD IMG US ABDOME N Final Result documented in this encounter Visit Diagnoses Diagnosis Elevated LFTs- Primary Other abnormal blood chemistry Elevated LFTs Other abnormal blood chemistry documented in this encounter Care Teams Retail Support Manager Relationship Specialty Start Date End Date Batsheva Vasquez NP PCP - General 05/17/19 documented as of this encounter Additional Source Comments The information contained in this document represents components of the legal health record. It is not the complete legal health record.[facility]
--- OUTSIDE RECORDS SUMMARY | 2025-04-26 08:16 | XMS_ITS | Encounter Summary ---
Author Organization [facility] Address [address] [facility] [address] [place] [address] Care Team Providers Care Car Repairer Apprentice Name Role Phone Lilliana Olivo MD Primary Care Provide r Encounter Details Date Type Department Care Team (Latest Contact Info) Description 01/06/[address] [facility] CONVERSIONS Dental, Provider, DDS Social History Tobacco [...] Care Team (Late st Contact Info) Description 05/30/2025 8:00 AM EST Office Visit [facility] ADULT DENTAL [address] [place] [address] Deanna, Joana [address] [place] [address] 05/30/2025 11:15 AM EST Office Visit [facility] MEDICINE [address] [place] [address] Negin Moreno MD [address] [place] [address] documented as of this encounter Visit Diagnoses Not on filedocumented in this encounter Care Teams Car Repairer Apprentice Relationship Specialty Start Date End Date Lilliana Olivo MD [address] [place] [address] PCP - General Family Medicine 06/16/20 documented as of this encounter
--- OUTSIDE RECORDS SUMMARY | 2025-04-26 08:16 | XMS_ITS | Encounter Summary ---
Author Organization [facility] Address [address] [facility] [address] [place] [address] Care Team Providers Care Talent Sourcing Specialist Name Role Phone Lilliana Olivo MD Primary Care Provide r Encounter Details Date Type Department Care Team (Latest Contact Info) Description 07/29/2020 Abstract [facility] CONVERSIONS Dental, Provider, DDS Social History [...] Description 05/30/2025 8:00 AM EST Office Visit [facility] ADULT DENTAL [address] [place] [address] Deanna, Joana [address] [place] [address] 05/30/2025 11:15 AM EST Office Visit [facility] MEDICINE [address] [place] [address] Negin Moreno MD [address] [place] [address] documented as of this encounter Visit Diagnoses Not on filedocumented in this encounter Care Teams Talent Sourcing Specialist Relationship Specialty Start Date End Date Lilliana Olivo MD [address] [place] [address] PCP - General Family Medicine 06/16/20 documented as of this encounter
--- OUTSIDE RECORDS SUMMARY | 2025-04-26 08:16 | XMS_ITS | Encounter Summary ---
Author Organization [facility] Address [address] [place] [phone] Phone Care Team Providers Care Medical Equipment Repair Technician Name Role Phone Pedro Lam NP, Bathseva Primary Care Provider Lavonne martin Encounter Details Date Type Department Care Team (Late st Contact Info) Description 10/09/2023 Procedure [facility] L[facility]D Procedures [address] [place] [address] Social History Tobacco Use Types Packs/Day Years [...] on file documented as of this encounter Visit Diagnoses Not on filedocumented in this encounter Care Teams Medical Equipment Repair Technician Relationship Specialty Start Date End Date Batsheva Vasquez NP PCP - General 05/17/19 documented as of this encounter Additional Source Comments The information contained in this document represents components of the legal health record. It is not the complete legal health record.[facility]
--- OUTSIDE RECORDS SUMMARY | 2025-04-26 08:16 | XMS_ITS | Encounter Summary ---
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 Name Role Phone Pedro Lam NP, Batsheva Primary Care Provider Lavonne martin Encounter Details Date Type Department Care Team (Latest Contact Info) Description 04/28/2022 Transcribe Orders Virtual Department [address] [place] [address] Lilliana Ch MD [address] [place] [address] Fatty (change of) liver, not elsewhere classified (Primary Dx) Social History Tobacco Use Types Packs/Day Years Used Date Smoking Tobacco: Never Smokeless Tobacco: Never Alcohol Use Standard Drinks/Week Comments No 0 (1 standard drink = 0.6 oz pur e alcohol) Comments No Sex and Gender Information Value [...] encounter Results * US ABDOMEN COMPLETE (ADULT) (05/19/2022 7:51 AM EST) Anatomical Region Laterality Modality Abdomen Ultrasound 05/19/2022 8:36 AM EST Impressions 05/19/2022 8:41 AM EST Diffuse fatty liver. Otherwise, unremarkable abdominal ultrasound Narrative 05/19/2022 8:41 AM EST US ABDOMEN COMPLETE (ADULT) TECHNIQUE: Abdominal Ultrasound Complete. COMPARISON: FINDINGS: Liver: Diffuse fatty liver. No focal lesions. Main Portal Vein: Patent with normal direction of flow. Gallbladder: Normal. No gallstones or gallbladder wall thickening. Dale's Sign: Negative. Biliary: Normal. No intrahepatic or extrahepatic biliary ductal dilatation. The common bile duct measures 6 mm. Pancreas: Incompletely visualized. Spleen: Normal. No splenomegaly. Kidneys: Normal. No stones or hydronephrosis. Aorta: Normal, where visualized sonographically. IVC: Normal intrahepatic segment. Procedure Note Rick Ni MD, LOU - 05/19/2022 US ABDOMEN COMPLETE (ADULT) TECHNIQUE: Abdominal Ultrasound Complete. COMPARISON: FINDINGS: Liver: Diffuse fatty liver. No focal lesions. Main Portal Vein: Patent with normal direction of flow. Gallbladder: Normal. No gallstones or gallbladder wall thickening. Dale's Sign: Negative. Biliary: Normal. No intrahepatic or extrahepatic biliary ductaldilatation. The common bile duct measures 6 mm. Pancreas: Incompletely visualized. Spleen: Normal. No splenomegaly. Kidneys: Normal. No stones or hydronephrosis. Aorta: Normal, where visualized sonographically. IVC: Normal intrahepatic segment. IMPRESSION: Diffuse fatty liver. Otherwise, unremarkable abdominal ultrasound [facility] Mica Ch MD [facility] US ABDOME N Final Result documented in this encounter Visit Diagnoses Diagnosis Fatty (change of) liver, not elsewhere classified- Primary Fatty (change of) liver, not elsewhere classified documented in this encounter Care Teams [employer] Chef [employer] Owner Relationship Specialty Start Date End Date Batsheva Vasquez NP PCP - General 05/17/19 documented as of this encounter Additional Source Comments The information contained in this document represents components of the legal health record. It is not the complete legal health record.[facility]
--- OUTSIDE RECORDS SUMMARY | 2025-04-26 08:16 | XMS_ITS | Encounter Summary ---
Author Organization [facility] Address [address] [facility] [address] [place] [address] Care Team Providers Care Injector Assembler Name Role Phone Lilliana Olivo MD Primary Care Provide r Encounter Details Date Type Department Care Team (Latest Contact Info) Description 07/06/2018 Abstract [facility] CONVERSIONS Dental, Provider, DDS Social History [...] Description 05/30/2025 8:00 AM EST Office Visit [facility] ADULT DENTAL [address] [place] [id number] Deanna, Joana [address] [place] [address] 05/30/2025 11:15 AM EST Office Visit [facility] MEDICINE [address] [place] [address] Negin Moreno MD [address] [place] [address] documented as of this encounter Visit Diagnoses Not on filedocumented in this encounter Care Teams Injector Assembler Relationship Specialty Start Date End Date Lilliana Olivo MD [address] [place] [phone] PCP - General Family Medicine 06/16/20 documented as of this encounter
--- OUTSIDE RECORDS SUMMARY | 2025-04-26 08:16 | XMS_ITS | Clinical Summary ---
Author Organization [employer] Address [address] [facility] [address] [place] [address] Care Team Providers Care Figure Skater Name Role Phone Lilliana Olivo MD Primary Care Provide r Allergies No known active allergies Medications * This document contains information received from the source organization and may not represent a complete record from that organization. cholecalciferol (Vitamin D-3) 25 MCG (1000 UT) tabletIndicatio ns:Vitamin D deficiency Take 1 tablet (25 mcg) by mouth Once per day. 60 tablet 1 4 Active Additional Information Patient not taking.Reported on 03/03/2025 acetaminophen (Tylenol) 500 MG tablet Take 2 tablets (1,000 mg) by mouth every 6 (six) hours if needed for moderate pain or fever for up to 25 doses. 50 tablet 5 Active Additional Information Patient not taking.Reported on 03/03/2025 ibuprofen 400 MG tablet Take 1 tablet (400 mg) by mouth every 6 (six) hours if needed for moderate pain or fever for up to 30 doses. 30 tablet 5 Active Additional Information Patient not taking.Reported on 03/03/2025 multivitamin () 27-0.8 MG tabletIndicatio ns:Family planning Take 1 tablet by mouth Once per day. 30 tablet 2 5 Active Additional Information Patient not taking.Reported on 03/03/2025 loratadine (Claritin) 10 MG tablet Take 1 tablet (10 mg) by mouth Once per day. 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 Patient met with MFM and chooses to continue and deliver with us at [facility]. Monitoring not recommended but patient is so need a plan for management. Offered induction vs expectant management. Lilliana prefers expectant management at this point. Discussed possibility that labor may not start spontaneously and recommendation for IOL date if no labor. Tentative plan made for 40 weeks. Request for sterilization 04/04/2023 Overview (01/21/2025): Patient sure re no more pregnancies. This is 4th. Sign papers at 24-28 weeks. Given anencephaly, will defer sterilization until interval procedure. Lilliana is still sure re no more children, but she needs to address further with . History of delivery, currently 02/27/2023 Overview (01/21/2025): Date of surgery: 09/18/06 Reason for prior [...] schedule MD consult at 35-37 weeks Calculator: [email or web address]/qsbwovm-blstw-[email or web address]--yolis culat or History of 02/27/2023 Overview (01/21/2025): x2: 11/25/18, 04/07/21 Headache 02/11/2023 Assessment & Plan (02/11/2023 9:07 [...] care exa mination 09/08/2022 Assessment & Plan (11/08/2024 5:05 PM EDT): See HPI Assessment & Plan (10/31/2023 1:37 PM EDT): See HPI Assessment & Plan (09/08/2022 1:57 PM EDT): Please refer to HPI Slow transit constipation 09/08/2022 Assessment & Plan (09/08/2022 1:58 PM EDT): It was advise to drink more water and increase fiber on her diet Resolved Problems Problem Noted Date Diagnosed Date Resolved Date 11 weeks gestation of 02/11/2023 11/08/2024 Assessment & Plan (02/11/2023 9:05 AM EDT): -LMP: 11/29/2022 ----calculated 11 weeks of -Pt is not sure if would like to continue w and would like to discuss w partner. -I made referral to OBGYN in case she decides to go through w and gave prenatals to start, in case she decides to continue. -I also gave number of [facility] [place] in case she decides not to continue w . -Will do labs today. -Discussed importance of avoiding alcohol and certain meds if she decides to continue w . Pt is a non-smoker and does not use drugs. Elevated LFTs 07/14/2022 11/08/2024 Assessment & Plan (05/17/2024 10:43 AM EST): Today extensive discussion was done about life style modifications I advise healthy diet (low calorie) and cardiovascular exercise Labs will be recheck Steatosis of liver 07/14/2022 Encounters Date Type Department Care Team Description 03/06/2025 3:00 PM EST Office Visit [facility] OPTOMETRY [address] [facility] [place] [address] Severino, Annemarie, OD Myopia of both eyes (Primary Dx); Meibomian gland disease of both eyes, unspecified eyelid; Generalized headaches 03/06/2025 Travel 03/03/2025 9:30 AM EST Office Visit [facility] ADULT DENTAL [address] [place] [address] Parmar-Barkley, Sherin, DDS Full coverage crown needed for root canal-treated tooth (Primary Dx) 02/13/2025 10:00 AM EDT Office Visit [facility] ADULT DENTAL [address] [place] [address] Parmar-Barkley, Sherin, DDS Dental caries (Primary Dx); Open fracture of tooth, initial encounter; Full coverage crown needed for root canal-treated tooth 02/13/2025 9:15 AM EDT Office Visit [facility] MEDICINE [address] [place] [address] Africa Lopez CNM Breast pain (Primary Dx); Amenorrhea 02/13/2025 Travel 02/12/2025 Telephone [facility] MEDICINE [address] [place] [address] Africa Lopez CNM chart prep 02/07/[address] [address] Lilliana Olivo MD Appointment Request from Last 3 Months Immunizations Immunization Administration Dates Next Due Hep B, adult [...] Date Recorded Patient Health Questionnaire-9 Score 0 11/08/2024 Patient Health Questionnaire-9 Score 0 11/08/2024 Last PHQ-9: Questionnaire Data Not on file 0 11/08/2024 Housing Stability Answer Date Recorded What is your housing situation today? I have alberto connell 10/30/[address] you li ve. Do you have problems with any of the following? Mold 10/30/2024 Food Insecurity Answer Date Recorded Within the [...] Date Recorded Patient Health Questionnaire-2 Score 0 11/08/2024 Internet Access Answer Date Recorded Internet Access Q1 Yes 01/01/2024 Internet Access Q2 Not on file 01/01/2024 Comments No Intention Date Recorded No desire to become (finding) 1 Sex and Gender Information Value Date Recorded Sex Assigned at Female 02/28/2022 10:26 AM EDT Legal Sex Female 10:26 AM EDT Gender Identity Female 02/28/2022 10:26 AM EDT Sexual Orientation Straight 02/28/2022 10 :26 AM EDT Last Filed Vital Signs Vital Sign Reading Time Taken Comments Blood Pressure 122/60 03/03/2025 9:04 AM EST Pulse 80 02/13/2025 9:16 AM EDT Temperature 37 C (98.6 F) 02/13/2025 9:16 AM EDT Respiratory Rate 14 02/13/2025 9:16 AM EDT Oxygen Saturation 98% 02/13/2025 9:16 AM EDT Inhaled Oxygen Concentration - - Weight 68.9 kg (151 lb 12.8 oz) 02/13/2025 9:16 AM EDT Height 154.9 cm (5' 1 ) 11/08/2024 1:52 PM EDT Body Mass Index 28.68 11/08/2024 1:52 PM EDT Plan of Treatment Upcoming Encounters Date Type Department Care Team (Late st Contact Info) Description 05/30/2025 8:00 AM EST Office Visit [facility] ADULT DENTAL [address] [place], [place] [phone] Deanna, Joana [address] [place], [place] [phone] 05/30/2025 11:15 AM EST Office Visit [facility] MEDICINE [address] [place], [place] [phone] Negin Moreno MD [address] [place], [place] [phone] Health Maintenance Due Date Last Done Comments HPV Vaccines (1 - 3-dose series) 1999 Mammogram 2024 COVID-19 Vaccine (2024- season) 2024 03/31/2021 Influenza Vaccine (#1) 2024 , 01/24/2019, 03/14/2017, Additional history exists Dental X-Ray: Full Mouth 01/07/2025 022, 01/06/2022, 03/16/2018, Additional history exists Dental Oral Exam 05/19/2025 11/15/2024, 12/2023, 01/06/2022, Additional history exists Dental Prophylaxis 05/19/2025 11/15/2024, 0 05/17/2024, 11/07/2023, Additional history exists Cervical Cancer Screening 09/30/2025 HPV/Cotest 09/30/2025 09/30/2020, 03/14/2017 Pap Smear 09/30/2025 09/30/2020 SDOH Screening 10/30/2025 10/30/2024 Depression Screening 11/08/2025 11/08/2024, 11/14/19 24 Disability Screening 11/08/2025 11/08/2024 Dental X-Ray: Bitewings 12/24/2025 12/24/19 25, 11/15/2024, 11/07/2023, Additional history exists Alcohol/Substance Use Screening 02/13/2026 02/13/2025 Family Planning (PISQ) 02/13/2026 02/13/2025 Tobacco Screening 03/21/2026 03/21/2025 DTaP/Tdap/Td Vaccines (5 - Td or Tdap) [...] on patient's age to complete this topic Hepatitis A Vaccines Aged Out No long er eligible based on patient's age to complete this topic IPV Vaccines Aged Out No longer eligi ble based on patient's age to complete this topic Meningococcal B Vaccine Aged Out No l onger eligible based on patient's age to complete this topic Meningococcal Vaccine Aged Out No tima walt eligible based on patient's age to complete this topic Pneumococcal Vaccine: Pediatrics (0 to 5 Years) and At-Risk Patients (6 to 49) Years Aged Out No longer eligible based on patient's age to complete this topic RSV under 20 months Aged Out No longe r eligible based on patient's age to complete this topic Rotavirus Vaccines Aged Out No longer eligible based on patient's age to complete this topic Procedures Procedure Name Priority Date/Time Associated Diagnosis Comments CASE PRESENTATION, DETAILED AND EXTENSIVE TREATMENT PLANNING Routine 03/03/2025 9:30 AM EST Full coverage crown needed for root canal-treated tooth INTRAORAL - PERIAPICAL FIRST RADIOGRAPHIC IMAGE Routine 03/03/2025 9:30 AM EST Full coverage crown needed for root canal-treated tooth 13 CROWN - PORCELAIN/CERAMIC Routine 03/03/2025 9:30 AM EST Full coverage crown needed for root canal-treated tooth CASE PRESENTATION, DETAILED AND EXTENSIVE TREATMENT PLANNING Routine 02/13/2025 10:00 AM EDT Dental caries Open fracture of tooth, initial encounter Full coverage crown needed for root canal-treated tooth INTRAORAL - PERIAPICAL FIRST RADIOGRAPHIC IMAGE Routine 02/13/2025 10:00 AM EDT Dental caries Open fracture of tooth, initial encounter Full coverage crown needed for root canal-treated tooth CROWN PREP Routine 02/13/2025 10:00 AM EDT Dental caries Open fracture of tooth, initial encounter Full coverage crown needed for root canal-treated tooth 13 PREFABRICATED POST AND CORE IN ADDITION TO CROWN Routine 02/13/2025 10:00 AM EDT Dental caries Open fracture of tooth, initial encounter Full coverage crown needed for root canal-treated tooth POCT , URINE Routine 02/13/2025 9:25 AM EDT Breast pain BITEWING - SINGLE RADIOGRAPHIC IMAGE Routine 12/23/2024 9:00 AM EDT PROPHYLAXIS - ADULT Routine 11/15/2024 3 :00 PM EDT Gingival bleeding Missing teeth, acquired Dental calculus PERIODIC ORAL EVALUATION - ESTABLISHED PATIENT Routine 11/15/2024 3:00 PM EDT HIV 1/2 ANTIGEN/ANTIBODY, FOURTH GENERATION W/RFL [...] Recently Relevant to Health Maintenance Results * POCT , urine manually resulted (02/13/2025 9:25 AM EDT) Preg Test, Ur Negative Negative, Indeterminate, None Detected, Invalid, Specimen unsatisfactory for evaluation, Weakly Positive, 2+ QC Media Lot # [id number] Lot# Expiration Date [id number] Urine 02/13/2025 9:25 AM EDT us [place] PINO POINT OF CARE TEST ENTER/ EDIT ORDERABLES Final Result * HIV-1/2 Antigen and Antibodies, Fourth Generation, with Reflexes (10/30/2023 3:06 PM EDT) HIV AB/AG Nonreactive Nonreactive [facility] Comment:HIV-1 p24 Ag and/or HIV-1/HIV-2 Ab not detected.A test result that is nonreactive does not exclude thepossibility of exposure to or infection with HIV-1 and/orHIV-2. Nonreactive results in this assay for individualswith prior exposure to HIV-1 and/or HIV-2 may be due toantigen and antibody levels that are below the limit ofdetection of this assay.The [employer] HIV Ag/Ab Combo assay result andsupplemental assay results should be interpreted inconjunction with the patient's clinical presentation,history and other laboratory results. If the results areinconsistent with clinical evidence, additional testing issuggested to confirm the result. Blood Venous blood specimen / Unknown 10/30/2023 3:06 PM EDT 10/30/2023 4:03 PM EDT us Lilliana Alcocer MD LAB BLOOD ORDERABLES Final Result [facility] [address] [place] [phone] * HEPATITIS C AB W/REFL TO HCV RNA, QN, PCR (02/28/2022 10:46 AM EDT) HEPATITIS C ANTIBODY NON-REACTI VE NON-REACT TRESSA [facility]VERT[facility] INDEX 0.10 <1.00 [facility] Comment: HCV antibody was non-reactive. There is no laboratory evidence of HCV infection. In most cases, no further action is required. However, if recent HCV exposure is suspected, a test for HCV RNA (test code 90590) is suggested. For additional information please refer to http://education.questdiagnostics.com/faq/XST47r9 (This link is being provided for informational/ educational purposes only.) 02/28/2022 10:4 6 AM EDT Lilliana Alcocer MD HISTORICAL/NON ORDERA BLE LABS Final Result [facility]GAC[facility] * Pap Smear (09/30/2020) Pap Negative for intraephithelial lesion or malignancy Negative for intraephithelial lesion or malignancy, Other HPV Undetected Undetected, Indeterminate, Quantitative, Not Detected Historical Provider HEALTH MAINTENANCE Final Result from Last 3 Months or Most Recently Relevant to Health Maintenance Insurance [facility] FULL [facility] LIMITED ADULT DENTAL - [facility] FULL (MEDICAID) Care Teams Figure Skater Relationship Specialty Start Date End Date Lilliana Olivo MD [address] [place] [phone] PCP - General Family Medicine 06/16/20
== END 2025-04-26 08:14 | disposition home or self-care (01) ==
LOC: HO.MAMMO 08:13
PROVIDERS: PCP Internal Medicine; Visit Provider Internal Medicine
DX: Z12.31 Encounter for screening mammogram for malignant neoplasm of breast (principal)
CPT/HCPCS: 77063; 77067

== ENCOUNTER → 2025-04-26 08:15 | Outpatient (BNV) | payer MEDICAID, SELFPAY | PROVIDERS: PCP Internal Medicine; Visit Provider Internal Medicine | DX: Z12.31 Encounter for screening mammogram for malignant neoplasm of breast (principal) | CPT/HCPCS: 77063; 77067 ==